=== PATIENT | female | born 1985 | race American Indian/Alaskan Native ===

== ENCOUNTER 2016-06-20 22:13 | Emergency (ER) | payer SELFPAY ==
[2016-06-20 22:25] VITALS: BP 114/79
--- NOTE | 2016-06-21 04:23 | Emergency Department Report ---
Chief Complaint: Urogenital-Female Stated Complaint: VAGINAL DISCHARGE Time Seen by Provider: 06/21/16 04:21 - HPI History of Present Illness: 30-year-old female presents today with green vaginal discharge 1 week. Patient states that she had unprotected sex 8 days ago and is worried about possible STD exposure and . Patient would like a STD check and check. Denies urinary symptoms, vaginal bleeding. Denies fever, chills, nausea, vomiting, chest pain, shortness of breath, abdominal pain. - ROS Review of Systems: Per HPI - Exam Vital Signs: Vital Signs 06/20/16 22:20 Temperature 98.4 F Pulse Rate 81 Respiratory 18 Rate Blood Pressure 114/79 O2 Sat by Pulse 100 Oximetry Physical Exam: General: 30-year-old female in no acute distress. Well-developed, well- nourished. CV: Regular rate and rhythm. No murmurs rubs or gallops. Lungs: Clear to auscultation bilaterally. Abdomen: No tenderness to palpation. Nondistended. No guarding or rebound tenderness. Normal bowel sounds. Mini Neuro: Alert and oriented 3. GCS at 15. MSE screening note: Focused history and physical exam performed. Due to findings the following was ordered: ED Disposition for MSE Disposition: MEDICAL SCREENING EXAM-LEFT Condition: Stable Referrals: PRIMARY CARE, [Primary Care Provider] - 3-5 Days
== END 2016-06-21 04:35 | disposition left against medical advice (07) ==
LOC: ED 22:13
DX: N89.8 Other specified noninflammatory disorders of vagina (principal); Z53.21 Procedure and treatment not carried out due to patient leaving prior to being seen by health care provider

== ENCOUNTER 2019-03-28 19:38 | Outpatient (CLI) | payer MEDICAID ==
[2019-03-28 21:29] LABS: Bacteria,Urine 1+ /HPF (Negative); Bilirubin,Urine NEG (Negative); Blood,Urine NEG (Negative); Color,Urine Straw (Yellow); Mucus,Urine FEW /HPF; Protein,Urine <15 mg/dL mg/dL (Negative); Urobilinogen,Urine < 2.0 mg/dL (<2.0); WBC,Urine < 1.0 /HPF (0.0-6.0)
[2019-03-28 21:58] VITALS: BP 98/61
== END 2019-03-28 22:22 | disposition home or self-care (01) ==
LOC: TRG 19:38
PROVIDERS: ATTEND Obstetrics & Gynecology
DX: O26.892 Other specified pregnancy related conditions, second trimester (principal); R51 Headache; M54.9 Dorsalgia, unspecified; R10.9 Unspecified abdominal pain; R11.0 Nausea; Z3A.23 23 weeks gestation of pregnancy
CPT/HCPCS: 81001

== ENCOUNTER 2021-04-01 17:37 | Outpatient (CLI) | payer MEDICAID ==
[2021-04-01 19:23] VITALS: BP 106/58
[2021-04-01] MEDS ORDERED: LACTATED RINGERS 1,000 ML IV ONE (19:32)
[2021-04-01 20:08] LABS: Bacteria,Urine 1+ /HPF (Negative); Bilirubin,Urine NEG (Negative); Blood,Urine NEG (Negative); Color,Urine Straw (Yellow); Protein,Urine <15 mg/dL mg/dL (Negative); Urobilinogen,Urine < 2.0 mg/dL (<2.0); WBC,Urine < 1.0 /HPF (0.0-6.0)
[2021-04-01] MEDS ORDERED: ACETAMINOPHEN 500 MG TAB PO ONE (20:16)
== END 2021-04-01 20:45 | disposition home or self-care (01) ==
LOC: TRG 17:37 → APU 17:39 → TRG 20:45
PROVIDERS: ATTEND Student in an Organized Health Care Education/Training Program
DX: O26.892 Other specified pregnancy related conditions, second trimester (principal); R10.9 Unspecified abdominal pain; Z3A.21 21 weeks gestation of pregnancy
CPT/HCPCS: 59025; 81001